=== PATIENT | male | born 1970 | race Caucasian/White ===

== ENCOUNTER 2024-09-26 08:07 | Outpatient (REF) | payer OTHER, SELFPAY ==
--- OUTSIDE RECORDS SUMMARY | 2024-09-26 08:25 | XMS_ITS | Encounter Summary ---
Author Organization [employer] Address [address] [facility] 7 [place] [address] Care Team Providers Care Policy Officer Name Role Phone Tenisha Mcqueen NP Primary Care Provider [phone] Reason for Visit * Reason Onset Date Comments Nurse Triage 08/27/2024 Encounter Details Date Type Department Care Team ([facility] st Contact Info) Description 08/27/2024 Telephone [facility] [address] [place], [place] [phone] Tenisha Mcqueen NP [address] [place] [address] Nurse Triage Social History Tobacco Use Types Packs/Day Years Used Date Smoking Tobacco: Never Passive Smoke Exposure: Never Smokeless Tobacco: Never Alcohol Use Standard Drinks/Week Comments Never 0 (1 standard drink = 0.6 oz pur e alcohol) Housing Stability Answer Date Recorded What is your housing situation today? I have naga jay 12/17/[address] you li ve. Do you have problems with any of the following? None of the above 12/17/2023 Food Insecurity Answer Date Recorded Within the past 12 months, y ou worried that your food would run out before you got money to buy more: Never True 12/17/2023 Within the past 12 months,th e food you bought just didn't last and you didn't have enough money to get more: Never True Transportation Answer Date Recorded In the past 12 months, has l ack of transportation kept you from medical appts, meetings, work or from getting things needed for daily living? No 12/17/2023 Utilities Answer Date Recorded In the past 12 months, has t he electric, gas, oil or water [employer] threatened to shut off services in your home? No 12/17/2023 Internet Access Answer Date Recorded Internet Access Q1 Yes 02/25/2024 Internet Access Q2 Not on file 02/25/2024 Sex and Gender Information Value Date Recorded Sex Assigned at Male 04/24/2022 10:22 AM EDT Legal Sex Male 10:22 AM EDT Gender Identity Male 04/24/2022 10:22 AM EDT Sexual Orientation Choose not to disclose 2021 10:22 AM EDT documented as of this encounter Miscellaneous Notes * Telephone Encounter - Phylicia Silva RN - 08/27/2024 11:00 AM EST called pt to triage, spoke to pt. pt states thinks he is losing weight and requesting appt. lookingin the chart, pt has not been seen in person since 2022 and has not had transfer appt with new PCP.pt reports unknown weight loss and has not been on Metformin for a while now. pt denies other symptoms or concerns and requesting appt with PCP. advised pt that his MH is inactive and will need to either come into the center and speak to the deputy insurance commissioner or call MH for assistance. advised home care: rest, fluids, monitor blood sugars if possible, and call back as needed. advised in the meantime to visit the walk in center as needed and will task to team for scheduling of transfer appt. pt understands and agrees with plan. insurance not verified. Protocol Used: No Protocol Available (Adult) Protocol-Based Disposition: See in Office or Video Visit within 2 Weeks Video visit offer not recorded Positive Triage Question: * Nursing judgment * All higher-acuity triage questions were negative Care Advice Discussed: * Reasons To Call Back - New symptoms develop - You become worse * Telephone Encounter - Mar Paniagua - 08/27/2024 9:36 AM EST Symptom: Weight Loss Outcome: Schedule an urgent appointment (within 4 hours) or talk to a nurse or provider soon Reason: Has diabetes The caller accepted this outcome. [phone] documented in this encounter Plan of Treatment Upcoming Encounters Date Type Department Care Team (Late st Contact Info) Description 10/06/2024 11:00 AM EDT Medication Management [facility] [address] [place] [address] Alonso Collier, PharmD 230 [place] [address] 11/25/2024 11:00 AM EDT Office Visit [facility] [address] [place] [address] Tenisha Mcqueen NP [address] [place] [address] documented as of this encounter Visit Diagnoses Not on filedocumented in this encounter Care Teams Policy Officer Relationship Specialty Start Date End Date Tenisha Mcqueen NP [address] [place] [phone] PCP - General Family Medicine 02/11/24 documented as of this encounter
--- OUTSIDE RECORDS SUMMARY | 2024-09-26 08:25 | XMS_ITS | Clinical Summary ---
Author Organization [facility] Address [address] [place] [address] Care Team Providers Care Manager Of Training Name Role Phone Unavailable Primary Care Provider Unavailabl e Social History Tobacco Use Types Packs/Day Years Used Date Smoking Tobacco: Never Assessed Sex and Gender Information Value Date Recorded Sex Assigned at Not on file Legal Sex Male 9:30 PM EST Gender Identity Not on file Sexual Orientation Not on file Plan of Treatment Health Maintenance Due Date Last Done Comments DTaP,Tdap,and Td Vaccines (1 - Tdap) 1988 Hepatitis B Vaccines (1 of 3 - 19+ 3-dose series) 1988 Pneumococcal Vaccine: 50+ Ye ars (1 of 1 - PCV) 11/24/2019 Zoster Vaccines (1 of 2) 11/24/2019 COVID-19 Vaccine ( - 2023-2 5 season) 2024 Influenza Vaccine (Season Ended) 2025 HIB Vaccines Aged Out No longer eligi ble based on patient's age to complete this topic HPV Vaccines Aged Out No longer eligi ble based on patient's age to complete this topic Hepatitis A Vaccines Aged Out No long er eligible based on patient's age to complete this topic IPV Vaccines Aged Out No longer eligi ble based on patient's age to complete this topic MMR Vaccines Aged Out No longer eligi ble based on patient's age to complete this topic Meningococcal ACWY Vaccine Aged Out N o longer eligible based on patient's age to complete this topic Meningococcal B Vacine Aged Out No lo nger eligible based on patient's age to complete this topic Pneumococcal Vaccine: Pediat rics (0 to 5 Years) and At-Risk Patients (6 to 64 Years) Aged Out No longer eligible b ased on patient's age to complete this topic RSV Immunization Patients Un kannan 20 months Aged Out No longer eligible b ased on patient's age to complete this topic Varicella Vaccines Aged Out No longer eligible based on patient's age to complete this topic
--- OUTSIDE RECORDS SUMMARY | 2024-09-26 08:25 | XMS_ITS | Encounter Summary ---
Author Organization [employer] Address [address] [facility] 7t [place] [address] Care Team Providers Care Word Processing Supervisor Name Role Phone Charisse Tenisha LINDA Primary Care Provider [phone] Encounter Details Date Type Department Care Team (Latest Contact Info) Description 09/25/2024 Travel Social History Tobacco Use Types Packs/Day Years [...] t he electric, gas, oil or water company threatened to shut off services in your [...] AM EDT documented as of this encounter Plan of Treatment Upcoming Encounters Date Type Department Care Team (Late st Contact Info) Description 10/06/2024 11:00 AM EDT Medication Management [facility] [address] [place] [address] Alonso Collier, PharmD [address] [place] [address] 11/25/2024 11:00 AM EDT Office Visit [facility] [address] [place] [phone] Tenisha Mcqueen NP [address] [place] [address] documented as of this encounter Visit Diagnoses Not on filedocumented in this encounter Care Teams Word Processing Supervisor Relationship Specialty Start Date End Date Tenisha Mcqueen NP [address] [place] [phone] PCP - General Family Medicine 02/11/24 documented as of this encounter
--- OUTSIDE RECORDS SUMMARY | 2024-09-26 08:26 | XMS_ITS | Clinical Summary ---
Author Organization [employer] Address [address] [place] [address] 7 [place] [address] Care Team Providers Care Train Starter Name Role Phone Tenisha Mcqueen NP Primary Care Provider [phone] Allergies No known active allergies Medications Nutritional Supplements (TheraLith XR) tablet take 1 tablet by oral route 2 times every day after meals Active ibuprofen 600 MG tabletIndicatio ns:Acute pain of left knee,Bursitis of left knee, unspecified bursa Take 1 tablet (600 mg) by mouth every 6 (six) hours if needed for mild pain or moderate pain for up to 60 doses. 60 tablet 10/04/19 23 Active Additional Information Patient not taking.Reported on 12/18/2023 Blood Pressure kitIndications: Primary hypertension Check blood pressure three times a week 1 kit 09/26/19 25 Active metFORMIN (Glucophage) 500 MG tabletIndicatio ns:Type 2 diabetes mellitus with other specified complication, without long-term current use of insulin (CMS/HCC) Take 1 tablet (500 mg) by mouth with breakfast. 90 tablet 3 09/26/19 25 2025 Active amLODIPine (Norvasc) 5 MG tabletIndicatio ns:Primary hypertension Take 1 tablet (5 mg) by mouth Once per day. 30 tablet 11 09/26/19 25 2025 Active metFORMIN (Glucophage) 500 MG tabletIndicatio ns:Type 2 diabetes mellitus with other specified complication, without long-term current use of insulin (CMS/HCC) TAKE 1 TABLET BY MOUTH EVERY DAY WITH A MEAL 90 tablet 1 12/28/19 24 2024 Discontinued(R eorder (will not trigger notification to Pharmacy)) Active Problems Problem Noted Date Diagnosed Date Type 2 diabetes mellitus, wi thout long-term current use of insulin 09/25/2024 Assessment & Plan (09/25/2024 4:22 PM EDT): Diabetes uncontrolled. Not seen PCP since 2020. Most recent labs below. - Lab Results Component Value Date HGBA1C 8.1 (A) 08/03/2023 HGBA1C 6.2 (H) 03/01/2021 -Currently only on Metformin 500 mg -Ordered labs 09/25/24 Primary hypertension 09/25/2024 Assessment & Plan (09/25/2024 4:18 PM EDT): -Blood pressure is not at goal. Initially 174/98 with repeat of 164/94 -Currently not on any medications -Start Amlodipine 5 mg 09/25/24 -Ordered labs 09/26/23 -Prescribed blood pressure kit, encouraged to keep a log 09/25/24 -Referred to Collaborative Drug Therapy Managment Program with our BhavyaDOSWALDO 09/25/24 -Continue lifestyle modifications Atrial tachycardia 09/25/2024 Assessment & Plan (09/25/2024 4:45 PM EDT): Initially tachycardic on vitals. Resolved on exam. Primary localized osteoarthritis of left knee Overview (01/07/2023): 11/01/22 Ortho appt, early. Steroid injection and xrays that day Fu 4-6 weeks Impaired glucose tolerance 08/23/2015 Obesity 07/08/2015 Encounters Date Type Department Care Team Description 09/25/2024 3:40 PM EDT Office Visit [facility] [address] [place] [address] Brandi Tena MD Primary hypertension (Primary Dx); Atrial tachycardia (CMS/HCC); Type 2 diabetes mellitus with other specified complication, without long-term current use of insulin (CMS/HCC) 09/25/2024 Travel 08/29/2024 Telephone [facility] [address] [place] [address] Rufus Ruiz [place] Appointment Request 08/28/2024 Telephone [facility] [address] [place] [address] Rufus Ruiz [place] Appointment Request 08/27/2024 Telephone [facility] [address] [place] [address] Tenisha Mcqueen NP Nurse Triage 07/01/2024 2:00 PM EST Office Visit [facility] [address] [place] [address] Hanna Schmitz DMD from Last 3 Months Immunizations Name Administration Dates Next Due Hep B, adult 05/29/2016,09/24/2015,08/23/2015 Influenza injectable quadriv alent IIV4 with preservative 05/24/2015 Influenza injectable quadriv alent preservative free 05/29/2016 Tdap 09/11/2011 Social History Tobacco Use Types Packs/Day Years Used Date Smoking Tobacco: Never Passive Smoke Exposure: Never Smokeless Tobacco: Never Tobacco Cessation:Counseling Given: Not Answered Alcohol Use Standard Drinks/Week Comments Never 0 [...] not to disclose 2021 10:22 AM EDT Last Filed Vital Signs Vital Sign Reading Time Taken Comments Blood Pressure 164/94 09/25/2024 4:11 PM EDT Pulse 98 09/25/2024 4:11 PM EDT Temperature 37.2 ??C (98.9 ??F) 09/25/2024 3:58 PM ED T Respiratory Rate 20 09/25/2024 3:58 PM EDT Oxygen Saturation 100% 09/25/2024 3:58 PM EDT Inhaled Oxygen Concentration - - Weight 85.5 kg (188 lb 9.6 oz) 09/25/2024 3:58 P M EDT Height 170.2 cm (5' 7 ) 10/03/2022 8:38 AM EDT Body Mass Index 29.54 10/03/2022 8:38 AM EDT Plan of Treatment Upcoming Encounters Date Type Department Care Team (Late st Contact Info) Description 10/06/2024 11:00 AM EDT Medication Management [facility] [address] [place] [phone] Alonso Collier, PharmD [address] [place] [address] 11/25/2024 11:00 AM EDT Office Visit [facility] [address] [place] [address] Tenisha Mcqueen, LINDA [address] [place] [address] Health Maintenance Due Date Last Done Comments Anal Pap 1969 CT Colonography 1969 Colonoscopy 1969 Colorectal Cancer Screening 1969 Dental Oral Exam 1969 Dental Prophylaxis 1969 Dental X-Ray: Full Mouth 1969 Depression Screening 1969 FIT DNA/Cologuard 1969 FIT 1969 FOBT 1969 HIV Screening 1969 Sigmoidoscopy 1969 Diabetes: Foot Exam 11/24/1979 Eye Exam 11/24/1979 Alcohol/Substance Use Screening 1981 Hepatitis C Screening 11/24/1987 Diabetes: Urine Protein Screening 1988 Hepatitis A Vaccines (1 of 2 - Risk 2-dose series) 1988 Pneumococcal Vaccine: 50+ Years (1 of 2 - PCV) 1988 Zoster Vaccines (1 of 2) 11/24/2019 DTaP/Tdap/Td Vaccines (2 - T d or Tdap) 09/10/2021 09/11/2011 Lipid Panel 03/01/2022 03/01/2021 Diabetes: Hemoglobin A1C 11/01/2023 024, 03/01/2021 COVID-19 Vaccine (3 - 2023-2 5 season) 2024 11/11/2020, 10/21/2020 Influenza Vaccine (#1) 2024 6, 05/24/2015 SDOH Screening 12/16/2024 12/17/2023 Dental X-Ray: Bitewings 07/02/2025 07/01/2024 Tobacco Screening 09/25/2025 09/25/2024 RSV Patients and Patients Aged 60 years or older (1 - 1-dose 75+ series) 2044 Hepatitis B Vaccines Completed 05/29/2016, 09/24/2015, 08/23/2015 HIB Vaccines Aged Out No longer eligi ble based on patient's age to complete this topic HPV Vaccines Aged Out No longer eligi ble based on patient's age to complete this topic IPV Vaccines Aged Out No longer eligi ble based on patient's age to complete this topic Meningococcal Vaccine Aged Out No chilo luz marina eligible based on patient's age to complete this topic RSV under 20 months Aged Out No longe r eligible based on patient's age to complete this topic Rotavirus Vaccines Aged Out No longer eligible based on patient's age to complete this topic Procedures Procedure Name Priority Date/Time Associated Diagnosis Comments INTRAORAL - PERIAPICAL FIRST RADIOGRAPHIC IMAGE Routine 07/01/2024 2:00 PM EST BITEWING - SINGLE RADIOGRAPHIC IMAGE Routine 07/01/2024 2:00 PM EST LIMITED ORAL EVALUATION - PROBLEM FOCUSED Routine 07/01/2024 2:00 PM EST POCT GLYCATED HEMOGLOBIN, TOTAL Routine 08/03/2023 10:27 AM EST Type 2 diabetes mellitus without complication, without long-term current use of insulin ([facility]) LIPID PANEL, STANDARD Routine 03/01/2021 8:38 AM EDT from Last 3 Months or Most Recently Relevant to Health Maintenance Results * (ABNORMAL) POCT A1C (08/03/2023 10:27 AM EST) Hemoglobin A1C 8.1(A) 4.0 - 6.0 % Comment:Pt educated as to si gns/symptoms of hyperglycemia and instructed to seek urgent care if S&S develop. Pt put on PCP recall list for 09/03/2023 Blood 08/03/2023 10:2 7 AM EST Naomie Saucedo MD POINT OF CARE TEST ENTER/ED IT ORDERABLES Final Result * (ABNORMAL) LIPID PANEL, STANDARD (03/01/2021 8:38 AM EDT) Chol/HDLC Ratio 4.8 <5.0 (calc) [facility] Cholesterol, Total 177 <200 mg/dL [facility] HDL Cholesterol 37(L) > OR = 40 mg/dL [facility] LDL Cholesterol 103(H) mg/dL (calc) [facility] Comment: Reference range: <100 ?? Desirable range <100 mg/dL for primary prevention; ?? <70 mg/dL for patients with CHD or diabetic patients ?? with > or = 2 CHD risk factors. ?? LDL-C is now calculated using the April ?? calculation, which is a validated novel method providing ?? better accuracy than the Friedewald equation in the ?? estimation of LDL-C. ?? Tera ENRIQUEZ et al. JAKI. 2013;310(19): 1611-8613 ?? (http://education.Sharetribe/faq/RWD356) Non-HDL Cholesterol 140(H) <130 mg/dL (calc) [facility] Comment: For patients with diabetes plus 1 major ASCVD risk ?? factor, treating to a non-HDL-C goal of <100 mg/dL ?? (LDL-C of <70 mg/dL) is considered a therapeutic ?? option. Triglycerides 260(H) <150 mg/dL [facility] Comment: ?? If a non-fasting specimen was collected, consider repeat triglyceride testing on a fasting specimen if clinically indicated. ?? Christiane et al. J. of Clin. Lipidol. 2015;9:129-169. ?? 03/01/2021 8:38 AM EDT us Karlee Jovel MD LAB BLOOD ORDERABLES Final R esult [facility] [address] from Last 3 Months or Most Recently Relevant to Health Maintenance Insurance [employer] Member Subscriber Plan / Payer (Ef fective 2022-Present) Name:Jayne Lee Relation to Subscriber:Self Name:Jayne Lee Payer ID:Not on file Group ID:Not on file Type:Medicaid Address: [facility] [address] [place] [id number] [place] [address] [facility] Care Teams Train Starter Relationship Specialty Start Date End Date Tenisha Mcqueen NP [address] [place] [phone] PCP - General Family Medicine 02/11/24
--- OUTSIDE RECORDS SUMMARY | 2024-09-26 08:26 | XMS_ITS | Encounter Summary ---
Author Organization [employer] Address [address] [place] [address] [address] [place] [address] Care Team Providers Care Sustainability Executive Director Name Role Phone Tenisha Mcqueen NP Primary Care Provider Reason for Referral * Consultation (Routine) - Authorized Specialty Diagnoses / Procedures Referred By Vivienne t Referred To Contact Pharmacy Diagnoses Primary hypertension Type 2 diabetes mellitus with other specified complication, without long-term current use of insulin (CMS/HCC) Brandi Tena MD [address] [place] [phone] Phone: tel: fax: Referral ID Status Reason Start Date Expiration Date Visits Requested Visits Authorized [id number] Authorized Consult and Treat 09/25/2024 09/25/2025 6 6 Reason for Visit * Reason Comments blood presures Encounter Details Date Type Department Care Team (Late st Contact Info) Description 09/25/2024 3:40 PM EDT Office Visit [facility] [address] [place] [address] [phone] Brandi Tena MD [address] [place] [phone] Primary hypertension (Primary Dx); Atrial tachycardia (CMS/HCC); Type 2 diabetes mellitus with other specified complication, without long-term current use of insulin (CMS/HCC) Social History Tobacco Use Types Packs/Day Years [...] AM EDT documented as of this encounter Last Filed Vital Signs Vital Sign Reading [...] oz) 09/25/2024 3:58 P M EDT Height - - Body Mass Index 29.54 10/03/2022 8:38 AM EDT documented in this encounter Progress Notes * Campos Fraga - 09/25/2024 3:40 PM EDT Subjective Patient ID: Jayne Lee is a 53 y.o. male with past medical history of type 2 diabetes who presents to walk in clinic for blood presures. Last seen PCP in 2020. Pt says last night he was driving and had a headache. He reports he got home took some medicine and then took his BP this morning which was elevated. Pt reports hx of hypertension but has not been on medication for many years. He denies tobacco, alcohol or other recreational drugs. Drinks coffee occasionally. Review of Systems Constitutional: Negative for fever and unexpected weight change. Respiratory: Negative for shortness of breath. Cardiovascular: Negative for chest pain. Gastrointestinal: Negative for abdominal pain. Genitourinary: Negative for difficulty urinating. Objective Visit Vitals BP (!) 164/94 Pulse 98 Temp 98.9 ??F (37.2 ??C) (Temporal) Resp 20 Wt 188 lb 9.6 oz (85.5 kg) SpO2 100% BMI 29.54 kg/m?? Smoking Status Never BSA 2.01 m?? Physical Exam Constitutional: Appearance: Normal appearance. Cardiovascular: Rate and Rhythm: Normal rate and regular rhythm. Pulses: Normal pulses. Heart sounds: Normal heart sounds. Pulmonary: Effort: Pulmonary effort is normal. Breath sounds: Normal breath sounds. Neurological: Mental Status: He is alert. Mental status is at baseline. Psychiatric: Behavior: Behavior normal. Problem List Items Addressed This Visit Primary hypertension - Primary -Blood pressure is not at goal. Initially 174/98 with repeat of 164/94 -Currently not on any medications -Start Amlodipine 5 mg 09/25/24 -Ordered labs 09/26/23 -Prescribed blood pressure kit, encouraged to keep a log 09/25/24 -Referred to Collaborative Drug Therapy Managment Program with our BhavyaDOSWALDO 09/25/24 -Continue lifestyle modifications Relevant Medications Blood Pressure kit amLODIPine (Norvasc) 5 MG tablet Other Relevant Orders TSH W/Reflex to FT4 Referral to Pharmacy CDTM Atrial tachycardia (CMS/HCC) Initially tachycardic on vitals. Resolved on exam. Relevant Medications amLODIPine (Norvasc) 5 MG tablet Other Relevant Orders CBC Type 2 diabetes mellitus, without long-term current use of insulin (CMS/HCC) Diabetes uncontrolled. Not seen PCP since 2020. Most recent labs below. - Lab Results Component Value Date HGBA1C 8.1 (A) 08/03/2023 HGBA1C 6.2 (H) 03/01/2021 -Currently only on Metformin 500 mg -Ordered labs 09/25/24 Relevant Medications metFORMIN (Glucophage) 500 MG tablet Other Relevant Orders Albumin, Random Urine W/Creatinine Hepatic Function Panel Lipid Panel, Standard Hemoglobin A1c Basic Metabolic Panel Referral to Pharmacy CDTM -No evidence of acute disease process. Suspect due to lack of follow-up care for >2 years chronic conditions uncontrolled. Symptoms mild. -Started anti-hypertensive, and refilled Metformin. -ER precautions discussed. -Seek medical attention for worsening symptoms. I, Campos Fraga, am serving as a scribe to document services personally performed by Dr. Herndon, based on the patient's response to questions by provider and providers statements to me. documented in this encounter Miscellaneous Notes * Assessment & Plan Note - Campos Fraga - 09/25/2024 4:45 PM EDTAssociated Problem(s): Atrial tachycardia (CMS/HCC) Initially tachycardic on vitals. Resolved on exam. * Assessment & Plan Note - Campos Fraga - 09/25/2024 4:13 PM EDTAssociated Problem(s): Type 2 diabetes mellitus, without long-term current use of insulin (CMS/HCC) Diabetes uncontrolled. Not seen PCP since 2020. Most recent labs below. - Lab Results Component Value Date HGBA1C 8.1 (A) 08/03/2023 HGBA1C 6.2 (H) 03/01/2021 -Currently only on Metformin 500 mg -Ordered labs 09/25/24 * Assessment & Plan Note - Campos Fraga - 09/25/2024 4:11 PM EDTAssociated Problem(s): Primary hypertension -Blood pressure is not at goal. Initially 174/98 with repeat of 164/94 -Currently not on any medications -Start Amlodipine 5 mg 09/25/24 -Ordered labs 09/26/23 -Prescribed blood pressure kit, encouraged to keep a log 09/25/24 -Referred to Collaborative Drug Therapy Managment Program with our PharmDOSWALDO 09/25/24 -Continue lifestyle modifications documented in this encounter Plan of Treatment Upcoming Encounters Date Type Department Care Team (Late st Contact Info) Description 10/06/2024 11:00 AM EDT Medication Management [facility] [address] [place] [phone] Alonso Collier PharmD [address] [place] [address] 11/25/2024 11:00 AM EDT Office Visit [facility] [address] [place] [phone] Tenisha Mcqueen, LINDA [address] [place] [address] Scheduled Orders Name Type Priority Associated Diagnoses Orde r Schedule Albumin, Random Urine W/Creatinine Lab Routine Type 2 diabetes mellitus with other specified complication, without long-term current use of insulin (CMS/HCC) Expected: 09/25/2024 (Approximate), Expires: 09/25/2025 Hepatic Function Panel Lab Routine Type 2 diabetes mellitus with other specified complication, without long-term current use of insulin (CMS/HCC) Expected: 09/25/2024 (Approximate), Expires: 09/25/2025 Lipid Panel, Standard Lab Routine Type 2 diabetes mellitus with other specified complication, without long-term current use of insulin (CMS/HCC) Expected: 09/25/2024 (Approximate), Expires: 09/25/2025 Hemoglobin A1c Lab Routine Type 2 diabetes mellitus with other specified complication, without long-term current use of insulin (CMS/HCC) Expected: 09/25/2024 (Approximate), Expires: 09/25/2025 Basic Metabolic Panel Lab Routine Type 2 diabetes mellitus with other specified complication, without long-term current use of insulin (CMS/HCC) Expected: 09/25/2024 (Approximate), Expires: 09/25/2025 TSH W/Reflex to FT4 Lab Routine Primary hypertension Expected: 09/25/2024 (Approximate), Expires: 09/25/2025 CBC Lab Routine Atrial tachycardia ([facility]/HCC) Expected: 09/25/2024, Expires: 09/25/2025 Scheduled Referrals Name Type Priority Associated Diagnoses Orde r Schedule Referral to Pharmacy CDTM Outpatient Referral Routine Primary hypertension Type 2 diabetes mellitus with other specified complication, without long-term current use of insulin ([facility]) Ordered: 09/25/2024 documented as of this encounter Visit Diagnoses Diagnosis Primary hypertension- Primary Unspecified essential hypertension Atrial tachycardia (CMS/HCC) Other specified cardiac dysrhythmias Type 2 diabetes mellitus with other specified complication, without long-term current use of insulin (CMS/HCC) documented in this encounter Care Teams Sustainability Executive Director Relationship Specialty Start Date End Date Tenisha Mcqueen NP [address] [place] [address] PCP - General Family Medicine 02/11/24 documented as of this encounter
[2024-09-26 11:35] LABS: Hematocrit 47.7 % (42.0-52.0); Hemoglobin 16.6 g/dl (14.0-18.0); Mean Corpuscular HGB Conc 34.8 g/dl (31.0-36.0); Mean Corpuscular Hemoglobin 28.9 pg (27.0-33.0); Mean Platelet Volume 10.8 fL (9.4-12.4); Platelet Count 120 X10*3/uL (160-400); Red Blood Count 5.75 X10*6/uL (4.60-5.80); White Blood Count 5.2 X10*3/uL (4.8-10.8)
[2024-09-26 11:48] LABS: Estimated Average Glucose 295 mg/dL; Hemoglobin A1C 465.2066 umol/L; Hemoglobin A1c % 11.9 % (<6.0); Total Hemoglobin (HGBA1C) 4359.7271 umol/L
[2024-09-26 11:58] LABS: Creatinine Urine 282.79 mg/dL; Microalbum/Creatinine Ratio Ur 11.6 ug/mg cr (<30)
[2024-09-26 12:50] LABS: Alanine Aminotransferase 30 U/L (0-40); Albumin Level 4.1 g/dL (3.5-5.0); Alkaline Phosphatase 73 U/L (39-117); Anion Gap 11 (12-20); Aspartate Amino Transferase 25 U/L (5-37); Bilirubin Direct 0.3 mg/dL (0.0-0.5); Bilirubin Total 1.1 mg/dL (0.0-1.0); Blood Urea Nitrogen 15 mg/dL (9-16); Calcium 9.3 mg/dL (8.4-10.2); Carbon Dioxide 26 mmol/L (22-29); Chloride 105 mmol/L (96-108); Cholesterol 210 mg/dL (<200); Estimated Glomerular Filt Rate > 60; Glucose Random 291 mg/dL (60-115); HDL Cholesterol 33 mg/dL (>40); LDL Cholesterol Calculated 119 mg/dL (<100); Sodium 138 mmol/L (135-145); Total Protein 7.3 g/dL (6.5-8.0); Triglycerides 290 mg/dL (<150)
[2024-09-26 12:53] LABS: TSH reflex Free T4 1.91 uIU/mL (0.32-4.0)
== END 2024-09-26 08:08 | disposition home or self-care (01) ==
LOC: HO.HHCL 08:07
PROVIDERS: Visit Provider Family Medicine
DX: E11.69 Type 2 diabetes mellitus with other specified complication (principal); I47.19 Other supraventricular tachycardia; I10 Essential (primary) hypertension
CPT/HCPCS: 36415; 80048; 80061; 80076; 82043; 82570; 83036; 84443; 85027